=== PATIENT | female | born 1980 | race Caucasian/White ===

== ENCOUNTER → 2017-03-23 11:03 | Outpatient (CLI) | payer MEDICAID, SELFPAY ==
[2017-03-16 09:56] VITALS: BP 125/65; BMI 36.1
[2017-03-23 09:10] VITALS: BP 117/79; BMI 36.8
--- NOTE | 2017-03-23 11:05 | US_ITS ---
STUDY: SECOND AND THIRD TRIMESTER OBSTETRICAL ULTRASOUND - LIMITED REASON FOR EXAM: Female, 36 years old. Routine survey. Gestational diabetes. LMP: August 12, 2016. PRIOR ULTRASOUND: None. TECHNIQUE: Transabdominal ultrasound evaluation was performed. FINDINGS: There is a single intrauterine fetus. The fetus is in a cephalic presentation. There is demonstrated cardiac activity with a heart rate of 133 bpm. There is a normal amniotic fluid volume. The largest amniotic fluid pocket measures 4.9 cm x 2.8 cm. The amniotic fluid index (TERE) is 10.8 cm. The placenta is posterior in location and is not low lying. There are Grade 1 placental changes. The cervix measures 3.2 cm in length. BIOMETRY: BPD: 8.43 cm: 34 weeks, 0 days HC: 30.46 cm: 34 weeks, 0 days AC: 20.05 cm: 32 weeks, 1 days FL: 6.34 cm: 32 weeks, 6 days Age by LMP: 31 weeks, 6 days. HARPREET by LMP: May 19, 2017. age by current US: 33 weeks, 2 days. HARPREET by current US: May 09, 2017. Estimated weight: 2018 grams, +/- 295 grams, 65 percentile. Gender: Indeterminant US/OB Limited With Biometrics IMPRESSION: There is a single live uterine gestation with a mean gestational age of 33 weeks and 2 days. Electronically Signed: Noe Hernández MD at 13:23 EST Tel [phone], Service support ,
== END ==
PROVIDERS: Visit Provider Obstetrics & Gynecology
DX: O24.419 Gestational diabetes mellitus in pregnancy, unspecified control (principal); Z3A.00 Weeks of gestation of pregnancy not specified
CPT/HCPCS: 76816

== ENCOUNTER → 2017-04-16 20:47 | Outpatient (CLI) | payer MEDICAID, SELFPAY | PROVIDERS: Visit Provider Obstetrics & Gynecology | DX: O09.90 Supervision of high risk pregnancy, unspecified, unspecified trimester (principal); Z3A.00 Weeks of gestation of pregnancy not specified | CPT/HCPCS: 87086; 87088 ==

== ENCOUNTER → 2017-04-24 07:55 | Outpatient (CLI) | payer MEDICAID, SELFPAY ==
--- NOTE | 2017-04-24 07:58 | US_ITS ---
STUDY: SECOND AND THIRD TRIMESTER OBSTETRICAL ULTRASOUND - LIMITED REASON FOR EXAM: Female, 36 years old. Routine survey. LMP: August 12, 2016. PRIOR ULTRASOUND: Comparison is made with prior study dated March 23, 2017. TECHNIQUE: Transabdominal ultrasound evaluation was performed. FINDINGS: There is a single intrauterine fetus. The fetus is in a cephalic presentation. There is demonstrated cardiac activity with a heart rate of 153 bpm. There is a normal amniotic fluid volume. The largest amniotic fluid pocket measures 4.4 cm x 3.6 cm. The amniotic fluid index (TERE) is 8.0 cm. The placenta is posterior in location and is not low lying. There are Grade 1 placental changes. There is subvisualization of the cervix due to the head positioning. BIOMETRY: BPD: 8.94 cm: 36 weeks, 2 days HC: 32.75 cm: 37 weeks, 2 days AC: 32.39 cm: 36 weeks, 3 days FL: 7.19 cm: 36 weeks, 6 days Age by LMP: 36 weeks, 3 days. HARPREET by LMP: May 19, 2017. age by prior US: 37 weeks, 6 days. HARPREET by prior US: May 09, 2017. age by current US: 36 weeks, 5 days. HARPREET by current US: May 17, 2017. Estimated weight: 2960 grams, +/- 432 grams, 56 percentile. Gender: Indeterminant US/OB Limited With Biometrics IMPRESSION: Single live intracranial gestation with mean gestational age of 37 weeks and 6 days. The measurements obtained today fall within normal expected range. Electronically Signed: Noe Hernández MD at 14:16 EDT Tel [phone], Service support ,
== END ==
PROVIDERS: Visit Provider Obstetrics & Gynecology
DX: O09.90 Supervision of high risk pregnancy, unspecified, unspecified trimester (principal)
CPT/HCPCS: 76816

== ENCOUNTER → 2017-05-14 11:12 | Outpatient (CLI) | payer MEDICAID, SELFPAY ==
--- NOTE | 2017-05-14 11:13 | US_ITS ---
US OB Limited 1 Or More Fetus INDICATION: FGFetal growthReason for Exam-OB (US) COMPARISON: April 24, 2017 TECHNIQUE: Ultrasonographic grayscale, Doppler and duplex investigation off the . FINDINGS: There is a single live intrauterine gestation in cephalic presentation with heart rate of 150 bpm. The cervix is not well visualized due to head. The placenta is located posteriorly and is not low-lying. The TERE is low with 5 cm. Estimated gestational age by today's measurements is 39 weeks and 4 days, confirming normal interval growth since the previous study. Biparietal diameter: 9.6 cm, estimating a gestational age of 39 weeks and 3 days. Head circumference: 34.6 cm, estimating a gestational age of 40 weeks and 1 day. Abdominal circumference 35.6 cm, estimating a gestational age of 39 weeks and 2 days. Femur length 7.7 cm, estimating a gestational age of 39 weeks and 2 days. Estimated weight by today's measurements is 3765 g with a standard deviation of 550 g which is in the 73rd percentile. Estimated date of delivery remains May 19, 2017. US/OB Limited With Biometrics IMPRESSION: Single live intrauterine gestation with normal interval growth, as detailed above. Estimated gestational age by today's measurements is 39 weeks and 4 days. Estimated date of delivery remains May 17, 2017. heart rate 150 bpm. TERE is low with 5 cm. at 0019 Reported and signed by: Mya Melgar MD Electronically Signed: Mya Melgar MD at 23:17 EDT Tel , Service support ,
== END ==
PROVIDERS: Visit Provider Obstetrics & Gynecology
DX: O09.90 Supervision of high risk pregnancy, unspecified, unspecified trimester (principal); O24.419 Gestational diabetes mellitus in pregnancy, unspecified control; Z3A.38 38 weeks gestation of pregnancy
CPT/HCPCS: 76816

== ENCOUNTER 2017-05-15 11:30 | Inpatient (IN) | payer MEDICAID, SELFPAY ==
[2017-05-15 12:32] VITALS: BMI 36.4
[2017-05-15] MEDS: Lactated Ringers 1,000 ML 50 ML IV ×2 (12:40→23:12)
[2017-05-15 13:05] LABS: Hematocrit 42.1 % (37-47); Hemoglobin 13.8 g/dl (12.0-15.0); Mean Corp Hgb Conc 32.8 g/gl (32-36); Mean Corpuscular Hgb 29.6 pg (27.0-32.0); Mean Corpuscular Volume 90.1 fL (81-99); Mean Platelet Vol. 12.9 fl (6.2-12.0); Platelet Count 164 K/mm3 (150-450); RBC Distribution Width CV 13.2 % (11.6-14.6); RBC Distribution Width SD 42.9 fl (35.1-43.9); Red Blood Count 4.67 M/mm3 (4.2-5.4); White Blood Count 10.5 K/mm3 (4.4-11.0)
[2017-05-15 13:12] LABS: Scan Indicated on CBC? Y/N NO
[2017-05-15 13:35] LABS: Bedside Glucose 87 mg/dL (70-110)
[2017-05-15 17:21] LABS: Bedside Glucose 88 mg/dL (70-110)
[2017-05-15] MEDS: Oxytocin 30 units/NS 500 ml 30 UNITS/500 ML IV.SOLN IV (20:10)
[2017-05-15 21:25] LABS: Bedside Glucose 117 mg/dL (70-110)
[2017-05-15 22:25] LABS: Bedside Glucose 99 mg/dL (70-110)
--- NOTE | 2017-05-16 02:29 | PCM.HP.OB ---
- Problem List (1) Oligohydramnios in third trimester Status: Acute (2) GBS (group B streptococcus) UTI complicating Status: Acute Qualifiers: Comment: PCN in labor (3) Rubella non-immune status, antepartum Status: Acute Comment: MMR pp (4) Supervision of high-risk Status: Acute Qualifiers: Comment: PRR HARPREET 05/19/17 boy Harjinder (5) Gestational diabetes Status: Acute Qualifiers: Comment: sees SHAUNA Foreman, diet controlled History Date of Admission: 05/16/17 Final HARPREET: 05/11/17 Gestational age: 40 Weeks and 4 Days History of this : 36 yo @ 40w4d Pertinent Past Medical History: PFSH negative PFSH Family History Mother Diabetes Cancer Breast cancer Father Hypertension Social History Smoking Status: Never smoker alcohol intake: never substance use type: does not use caffeine: Yes what type of physical activity do you participate in: none seatbelt use: always do you feel safe at home: Yes additional social history: Spouse Harjinder works for [employer] Pregancy History 1 Elective abortions Hx Para 0 Spontaneous abortions Hx # Term Pregnancies Ectopic pregnancies Hx # Pregnancies Multiple births # of living children HARPREET Calculator Estimated Delivery Date 05/19/17 Based on LMP (certain) 08/12/16 Current WG 38w 3d Number 1 Expected Delivery Route/Plan Specific Issue/Plans flu vaccine declined HERMINIO from [place] tdap given labor support person: Harjinder and Anita Null (friend) pain management: epidural cut cord/dad catch: yes/maybe control planned: special requests: Initial OB labs 10/18/16 H.3 Platelets: 220 Type and Screen: O positive RPR: nonimmune Rubella: neg HepBsAg: neg HIV: neg GC/Chlamydia: neg/neg Urine Culture: GBS Allergies No Known Allergies Allergy (Unverified 05/08/17 14:35) Current Medications Acetaminophen (Tylenol) 325 - 650 mg PO Q4H PRN PRN PRN Reason: PAIN OR FEVER >100.4F Al Hydroxide/Mg Hydroxide (Mylanta Ii) 15 - 30 ml PO Q4H PRN PRN PRN Reason: INDIGESTION Citric Acid/Sodium Citrate (Bicitra) 30 ml PO UD PRN Lactated Ringer's () 1,000 mls @ 50 mls/hr IV .Q20H [facility] Last Admin: 05/15/17 23:12 Dose: 50 mls/hr Oxytocin/Sodium Chloride () 30 units in 500 mls @ 1 mls/hr IV .Q500H [facility] Last Admin: 05/15/17 20:10 Dose: 1 mls/hr Penicillin G Potassium/Dextrose (Penicillin G Potassium) 3 mu in 50 mls @ 100 mls/hr IV Q4H [facility] Last Admin: 05/15/17 23:26 Dose: 100 mls/hr Nalbuphine HCl (Nubain) 5 - 10 mg IV Q3H PRN PRN PRN Reason: PAIN (4-10/10) Ondansetron HCl (Zofran) 4 mg IV Q8H PRN PRN PRN Reason: NAUSEA Promethazine HCl (Phenergan Iv) 6.25 - 12.5 mg IV Q4H PRN PRN; Protocol PRN Reason: IF NAUSEA PERSISTS Sodium Chloride () 5 - 15 ml IV UD [facility] Last Admin: 05/15/17 20:02 Dose: Not Given Smoking Status: Never smoker Alcohol: None Drug Use: none Number of Fetus(es): 1 - 130 moderate variability reactive no decels Review of Systems Constitutional: Denies: Chills, Fever, Weight Change HEENT: Denies: Head Aches, Sinus Congestion, Sinus Drainage Cardiovascular: Denies: Chest Pain, Palpitations Respiratory: Denies: Cough, Shortness of breath at rest, Sputum production Gastrointestinal: Denies: Abdominal Pain, Nausea, Vomiting Genitourinary: Denies: Dysuria Musculoskeletal: Denies: Joint Pain, Joint Tenderness Skin: Denies: Rash, Wounds Neurological: Denies: Numbness, Tingling, Focal weakness Psychiatric: Denies: Anxiety, Depression, Homicidal Ideations, Suicidal Ideations Hematologic/ Lymphatic: Denies: Easy Bruising, Easy Bleeding Physical Exam General: Alert, Oriented x3 Cardiovascular: Regular rate Lungs: Normal air movement Abdomen: Soft, Gravid Estimated gestational size: Appropriate for gestational size Cervix Dilation (cm): 3 Assessment/Plan Active and Suspected Problems (Last Reviewed 05/08/17 @ 14:35 by Lori Henderson) Oligohydramnios in third trimester (Acute) iol oligo gdma1 bs q 1 IAL, iol pit, arom clear fluid epi PRN
[2017-05-16] MEDS: fentaNYL-bupivacaine (epidural) 100 ML BAG EPIDURAL ×3 (02:37→11:34)
--- NOTE | 2017-05-16 02:41 | HP.PCM_ITS ---
- Problem List (1) Oligohydramnios in third trimester Status: Acute (2) GBS (group B streptococcus) UTI complicating Status: Acute Qualifiers: Comment: PCN in labor (3) Rubella non-immune status, antepartum Status: Acute Comment: MMR pp (4) Supervision of high-risk Status: Acute Qualifiers: Comment: PRR HARPREET 05/19/17 boy Harjinder (5) Gestational diabetes Status: Acute Qualifiers: Comment: sees SHAUNA Foreman, diet controlled History Date of Admission: 05/16/17 Final HARPREET: 05/11/17 Gestational age: 40 Weeks and 4 Days History of this : 36 yo @ 40w4d Pertinent Past Medical History: PFSH negative PFSH Family History Mother Diabetes Cancer Breast cancer Father Hypertension Social History Smoking Status: Never smoker alcohol intake: never substance use type: does not use caffeine: Yes what type of physical activity do you participate in: none seatbelt use: always do you feel safe at home: Yes additional social history: Spouse Harjinder works for [employer] Pregancy History 1 Elective abortions Hx Para 0 Spontaneous abortions Hx # Term Pregnancies Ectopic pregnancies Hx # Pregnancies Multiple births # of living children HARPREET Calculator Estimated Delivery Date 05/19/17 Based on LMP (certain) 08/12/16 Current WG 38w 3d Number 1 Expected Delivery Route/Plan Specific Issue/Plans flu vaccine declined HERMINIO from [place] tdap given labor support person: Harjinder and Anita Null (friend) pain management: epidural cut cord/dad catch: yes/maybe control planned: special requests: Initial OB labs 10/18/16 H.3 Platelets: 220 Type and Screen: O positive RPR: nonimmune Rubella: neg HepBsAg: neg HIV: neg GC/Chlamydia: neg/neg Urine Culture: GBS Allergies No Known Allergies Allergy (Unverified 05/08/17 14:35) Current Medications Acetaminophen (Tylenol) 325 - 650 mg PO Q4H PRN PRN PRN Reason: PAIN OR FEVER >100.4F Al Hydroxide/Mg Hydroxide (Mylanta Ii) 15 - 30 ml PO Q4H PRN PRN PRN Reason: INDIGESTION Citric Acid/Sodium Citrate (Bicitra) 30 ml PO UD PRN Lactated Ringer's () 1,000 mls @ 50 mls/hr IV .Q20H [facility] Last Admin: 05/15/17 23:12 Dose: 50 mls/hr Oxytocin/Sodium Chloride () 30 units in 500 mls @ 1 mls/hr IV .Q500H [facility] Last Admin: 05/15/17 20:10 Dose: 1 mls/hr Penicillin G Potassium/Dextrose (Penicillin G Potassium) 3 mu in 50 mls @ 100 mls/hr IV Q4H [facility] Last Admin: 05/15/17 23:26 Dose: 100 mls/hr Nalbuphine HCl (Nubain) 5 - 10 mg IV Q3H PRN PRN PRN Reason: PAIN (4-10/10) Ondansetron HCl (Zofran) 4 mg IV Q8H PRN PRN PRN Reason: NAUSEA Promethazine HCl (Phenergan Iv) 6.25 - 12.5 mg IV Q4H PRN PRN; Protocol PRN Reason: IF NAUSEA PERSISTS Sodium Chloride () 5 - 15 ml IV UD [facility] Last Admin: 05/15/17 20:02 Dose: Not Given Smoking Status: Never smoker Alcohol: None Drug Use: none Number of Fetus(es): 1 - 130 moderate variability reactive no decels Review of Systems Constitutional: Denies: Chills, Fever, Weight Change HEENT: Denies: Head Aches, Sinus Congestion, Sinus Drainage Cardiovascular: Denies: Chest Pain, Palpitations Respiratory: Denies: Cough, Shortness of breath at rest, Sputum production Gastrointestinal: Denies: Abdominal Pain, Nausea, Vomiting Genitourinary: Denies: Dysuria Musculoskeletal: Denies: Joint Pain, Joint Tenderness Skin: Denies: Rash, Wounds Neurological: Denies: Numbness, Tingling, Focal weakness Psychiatric: Denies: Anxiety, Depression, Homicidal Ideations, Suicidal Ideations Hematologic/ Lymphatic: Denies: Easy Bruising, Easy Bleeding Physical Exam General: Alert, Oriented x3 Cardiovascular: Regular rate Lungs: Normal air movement Abdomen: Soft, Gravid Estimated gestational size: Appropriate for gestational size Cervix Dilation (cm): 3 Assessment/Plan Active and Suspected Problems (Last Reviewed 05/08/17 @ 14:35 by Lori Henderson) Oligohydramnios in third trimester (Acute) iol oligo gdma1 bs q 1 IAL, iol pit, arom clear fluid epi PRN
[2017-05-16 03:15] LABS: Bedside Glucose 121 mg/dL (70-110)
[2017-05-16 04:16] LABS: Bedside Glucose 95 mg/dL (70-110)
[2017-05-16 05:11] LABS: Bedside Glucose 77 mg/dL (70-110)
[2017-05-16] MEDS: Ondansetron 4 MG/2 ML Vial IV (05:12)
[2017-05-16 06:16] LABS: Bedside Glucose 91 mg/dL (70-110)
[2017-05-16 06:56] LABS: Bedside Glucose 89 mg/dL (70-110)
[2017-05-16 08:06] LABS: Bedside Glucose 81 mg/dL (70-110)
[2017-05-16 09:00] LABS: Bedside Glucose 101 mg/dL (70-110)
[2017-05-16 09:56] LABS: Bedside Glucose 94 mg/dL (70-110)
[2017-05-16 10:51] LABS: Bedside Glucose 87 mg/dL (70-110)
[2017-05-16 12:05] LABS: Bedside Glucose 88 mg/dL (70-110)
[2017-05-16] MEDS: Oxytocin 30 units/NS 500 ml 30 UNITS/500 ML IV.SOLN 334 UNITS IV (12:42)
[2017-05-16] MEDS: Oxytocin 30 units/NS 500 ml 30 UNITS/500 ML IV.SOLN 167 UNITS IV (13:10)
[2017-05-16 16:00] VITALS: BP 129/67; PULSE 91; RESP 20; TEMP 37.1
[2017-05-16] MEDS: 0.9% Saline Lock 10 ML Syringe IV (16:00)
[2017-05-16 20:00] VITALS: BP 128/68; PULSE 81; RESP 15; TEMP 36.6
[2017-05-17] VITALS: BP 119/67; PULSE 92; RESP 16; TEMP 36.5
[2017-05-17] MEDS: Naproxen 250 MG Tablet PO ×2 (01:12→13:41)
[2017-05-17 04:00] VITALS: BP 130/70; PULSE 98; RESP 15; TEMP 36.3
[2017-05-17 06:40] LABS: Bedside Glucose 70 mg/dL (70-110)
--- NOTE | 2017-05-17 07:45 | PCM.PN.OB ---
Patient Problems: Active and Suspected Problems (Last Reviewed 05/08/17 @ 14:35 by Lori Henderson) Oligohydramnios in third trimester (Acute) Subjective: Doing well. No SOB,CP, NV. Minimal discomfort, controlled with OTC med - Physical Exam General: Alert, Oriented x3 Abdomen: Soft, Non Tender, - - FF below U Vital Signs Temp Pulse Resp BP 97.4 F L 98 15 130/70 H 05/17/17 04:00 05/17/17 04:00 05/17/17 04:00 05/17/17 04:00 Oxygen Delivery Method Room Air Weight: 225 lb 15.581 oz Body Mass Index (BMI) 36.4 Intake and Output for Last 24 Hours 05/15/17 05/16/17 05/17/17 23:59 23:59 23:59 Intake Total 4964 / 4964 Output Total 1650 / 1650 Balance 3314 / 3314 POC Glucose 05/17/17 05/16/17 05/16/17 06:36 11:52 10:43 POC Glucose 70 88 87 05/16/17 05/16/17 05/16/17 09:46 08:51 07:43 POC Glucose 94 101 81 Medical Necessity - Tobacco Use Smoking Status: Never smoker Assessment/Plan Active and Suspected Problems (Last Reviewed 05/08/17 @ 14:35 by Lori Henderson) Oligohydramnios in third trimester (Acute) PPD #1 Routine care. . Rh positive.
[2017-05-17] MEDS: Acetaminophen 500 MG Tablet 1000 MG PO (07:48)
[2017-05-17 07:54] VITALS: BP 122/63; PULSE 71; RESP 16; TEMP 36.7; O2SAT 95
[2017-05-17 08:00] VITALS: BP 122/63; PULSE 71; RESP 18; TEMP 36.7; O2SAT 95
[2017-05-17 11:44] VITALS: BP 125/71; PULSE 91; RESP 49; TEMP 36.5; O2SAT 97
[2017-05-17] MEDS: Senna/Docusate Sodium 1 Tablet PO (20:22)
[2017-05-17] MEDS: oxyCODONE 5 MG Tablet PO (20:23)
[2017-05-17 20:34] VITALS: BP 121/58; PULSE 73; RESP 18; TEMP 36.8; O2SAT 98
[2017-05-17] MEDS: Oxytocin 30 units/NS 500 ml 30 UNITS/500 ML IV.SOLN 334 UNITS IV (21:31)
[2017-05-18 01:54] VITALS: BP 111/69; PULSE 74; RESP 18; TEMP 36.6; O2SAT 96
[2017-05-18] MEDS: Naproxen 250 MG Tablet PO (07:58)
[2017-05-18] MEDS: oxyCODONE 5 MG Tablet PO (07:58)
[2017-05-18 08:05] VITALS: BP 109/72; PULSE 71; RESP 16; TEMP 36.6; O2SAT 98
--- NOTE | 2017-05-18 11:14 | PCM.OB.VAG ---
- Problem List (1) Oligohydramnios in third trimester Status: Acute (2) GBS (group B streptococcus) UTI complicating Status: Acute Qualifiers: Comment: PCN in labor (3) Rubella non-immune status, antepartum Status: Acute Comment: MMR pp (4) Supervision of high-risk Status: Acute Qualifiers: Comment: PRR HARPREET 05/19/17 boy Harjinder (5) Gestational diabetes Status: Acute Qualifiers: Comment: sees SHAUNA [place]ok, diet controlled Vaginal Delivery Maternal Presentation: Spontaneous Rupture of Membranes iol PROM Method of Induction: Pitocin, Cytotec Amniotic Membrane Rupture Type: Spontaneous at home Amniotic Fluid Description: Clear Final HARPREET: 05/19/17 Gestational age: 39 Weeks and 4 Days Date of Procedure: 05/16/17 Pre-Operative Diagnosis: Post-Operative Diagnosis: Surgery/ Procedure Performed: Spontaneous Vaginal Delivery Type of Anesthesia: Epidural Description of Procedure: patient delivered uncomplicated prema presentation and delayed cord clamping. 2nd degree perineal laceration repaired in the usual fashion with 3-0 vicryl rapide Presentation: PREMA Placental Delivery Description: Spontaneous Placenta Disposition: [facility] Cord Vessel Description: 3 Vessels Cord Entanglement: None A gender: Male Episiotomy Description: None Laceration: Perineal Extension/lac, 2nd degree Medications given after delivery: IV Pitocin Complications: None
--- NOTE | 2017-05-18 11:20 | PCM.PN.OB ---
Patient Problems: Active and Suspected Problems (Last Reviewed 05/08/17 @ 14:35 by Lori Henderson) Oligohydramnios in third trimester (Acute) Subjective: doing well n ocomplaints - Physical Exam General: Alert, Oriented x3 Vital Signs Temp Pulse Resp BP Pulse Ox 97.8 F 71 16 109/72 98 05/18/17 08:05 05/18/17 08:05 05/18/17 08:05 05/18/17 08:05 05/18/17 08:05 Oxygen Delivery Method Room Air Weight: 225 lb 15.581 oz Body Mass Index (BMI) 36.4 Intake and Output for Last 24 Hours 05/16/17 05/17/17 05/18/17 23:59 23:59 23:59 Intake Total 4964 / 4964 Output Total 1650 / 1650 Balance 3314 / 3314 Medical Necessity - Tobacco Use Smoking Status: Never smoker Assessment/Plan Active and Suspected Problems (Last Reviewed 05/08/17 @ 14:35 by Lori Henderson) Oligohydramnios in third trimester (Acute) s/p routine care gdma1- fbs wnl fu for 2 hour gtt at ppv
--- NOTE | 2017-05-18 11:27 | DCINST_ITS ---
Discharge Diet: No Restrictions Discharge Activity: Return to Normal Activity, May not drive while taking narcotic pain medications., May Shower May resume sexual activity in: 4-6 weeks Call your doctor if your incision/area has: Continuous Slow Oozing, Sudden Increased Bleeding, Increased Pain/ Swelling, Increased Redness, Foul Smelling Discharge Additional Instructions: If you experience any of the following, contact your healthcare provider. * Bleeding that soaks a pad every hour for 2 hours * Fever 100.4 or higher * Unrelieved incision or abdominal pain * Swelling, redness, discharge or bleeding from your incision or episiotomy site * Your incision begins to separate * Problems urinating (including inability to urinate or burning while urinating) . * Visual changes * Severe headache * Flu-like symptoms * Pain or redness in one of both of your breasts * Pain, warmth, tenderness or swelling in your legs, especially the calf area * Frequent nausea and vomiting * Symptoms of depression or anxiety If you experience any of the following, call 911 or go to the nearest Emergency Room. * Chest pain * Problems breathing * Seizure activity * Partial or complete paralysis of a body part, slurred speech, weakness or drooping of the face, or a sudden inability to walk or hold your balance Allergies/Adverse Reactions: Allergies No Known Allergies Allergy (Unverified 05/08/17 14:35) Medications to take at Discharge vitamins 1 tab PO DAILY 02/13/17 blood sugar diagnostic strips See Dose Instructions .ROUTE .MEDSUPPLY #180 ea Naproxen [Naprosyn] 250 - 500 mg PO Q8H PRN PRN #30 tab 05/18/17 Oxycodone HCl/Acetaminophen [Percocet 5-325] 1 - 2 tablet PO Q4H PRN PRN 7 Days #15 tablet 05/18/17 The following prescriptions were given: Oxycodone HCl/Acetaminophen [Percocet 5-325] 1 - 2 tablet PO Q4H PRN PRN 7 Days #15 tablet PRN Reason: Pain Naproxen [Naprosyn] 250 - 500 mg PO Q8H PRN PRN #30 tab PRN Reason: MILD PAIN Please Follow Up With: Falguni Palma MD - [phone] When: Call to make an appointment with your doctor in 6 weeks. If you had elevated Blood pressure or 4th degree laceration you will need to be seen in 2 weeks. Primary Care Physician: Care Physician,No Primary [Primary Care Provider] -
[2017-05-18 12:15] VITALS: BP 115/63; PULSE 76; RESP 15; TEMP 37.1; O2SAT 97
== END 2017-05-18 13:20 | disposition home or self-care (01) | DRG 372 ==
PROVIDERS: Admitting Provider Obstetrics & Gynecology; Visit Provider Obstetrics & Gynecology
DX: O41.03X0 Oligohydramnios, third trimester, not applicable or unspecified (principal); O98.82 Other maternal infectious and parasitic diseases complicating childbirth; O24.420 Gestational diabetes mellitus in childbirth, diet controlled; B95.1 Streptococcus, group B, as the cause of diseases classified elsewhere; O70.1 Second degree perineal laceration during delivery; Z3A.39 39 weeks gestation of pregnancy; Z37.0 Single live birth
CPT/HCPCS: 59025; 59050; 76816; 82962; 85027; 86850; 86900; 99218; J7120; A4216; G0378; J2405

== ENCOUNTER 2017-05-21 18:30 | Outpatient (CLI) | payer MEDICAID, SELFPAY | END 2017-05-21 19:30 | disposition home or self-care (01) | LOC: WPOUT 18:39 → WP 18:40 | PROVIDERS: Visit Provider Obstetrics & Gynecology | DX: O92.79 Other disorders of lactation (principal) | CPT/HCPCS: 96152 ==

== ENCOUNTER 2017-05-22 10:55 | Outpatient (CLI) | payer MEDICAID, SELFPAY | END 2017-05-22 12:00 | disposition home or self-care (01) | LOC: OBS 11:09 → WP 11:25 | PROVIDERS: Visit Provider Obstetrics & Gynecology | DX: O90.89 Other complications of the puerperium, not elsewhere classified (principal) | CPT/HCPCS: 96152 ==

== ENCOUNTER 2017-05-23 17:40 | Outpatient (CLI) | payer MEDICAID, SELFPAY | END 2017-05-23 17:55 | disposition home or self-care (01) | LOC: WPOUT 17:51 → WP 17:54 | PROVIDERS: Visit Provider Obstetrics & Gynecology | DX: O92.79 Other disorders of lactation (principal) | CPT/HCPCS: 96152 ==

== ENCOUNTER → 2018-07-22 | Outpatient (CLI) | payer MEDICAID, SELFPAY ==
[2018-07-22 13:53] VITALS: BMI 36.8
[2018-07-22 14:51] LABS: Absolute Lymphocyte Count 1.73 X10^3/ul (0.83-4.51); Absolute Neutrophil Count 5.8 X10^3/uL (2.0-7.7); Basophil# 0.01 X10^3/uL; Basophil% 0.1 % (0-1); Eosinophil# 0.06 X10^3/uL; Eosinophils% 0.7 % (0-5); Hematocrit 39.9 % (37-47); Hemoglobin 13.4 g/dl (12.0-15.0); Lymphocyte # 1.73 X10^3/ul (4.0); Lymphocyte % 21.1 % (19-41); Mean Corp Hgb Conc 33.6 g/gl (32-36); Mean Corpuscular Volume 86.4 fL (81-99); Monocyte# 0.59 X10^3/uL; Monocyte% 7.2 % (0-10); Neutrophil # 5.79 X10^3/uL (2.7-7.7); Neutrophil % 70.5 % (47-70); Platelet Count 189 K/mm3 (150-450); RBC Distribution Width CV 12.5 % (11.6-14.6); Red Blood Count 4.62 M/mm3 (4.2-5.4); White Blood Count 8.2 K/mm3 (4.4-11.0)
[2018-07-22 14:52] LABS: POSITIVE COUNT NO; POSITIVE DIFFERENTIAL NO; POSITIVE MORPHOLOGY NO
[2018-07-22 15:05] LABS: Glucose Challenge Gest 1H 50g 131 mg/dL (70-140)
[2018-07-22 16:23] LABS: HIV - WCH Non-Reactive (Nonreactive); Rubella IgG 174.2 IU/mL
[2018-07-22 19:14] LABS: Chlamydia Trachomatis by PCR Negative (Negative); Neisserai gonorrhoeae by PCR Negative (Negative); Probe Check PASS; Sample Adequacy Control PASS; Specimen Processing Control PASS
[2018-07-24 11:07] LABS: HEPATITIS B SURFACE AG Negative (Negative)
[2018-07-26 01:43] LABS: Rapid Plasmin Reagin (RPR) NONREACTIVE (NONREACTIVE)
== END | disposition home or self-care (01) ==
PROVIDERS: Referring Provider Obstetrics & Gynecology; Visit Provider Obstetrics & Gynecology
DX: O09.521 Supervision of elderly multigravida, first trimester (principal); O09.90 Supervision of high risk pregnancy, unspecified, unspecified trimester; Z31.430 Encounter of female for testing for genetic disease carrier status for procreative management; Z3A.00 Weeks of gestation of pregnancy not specified
CPT/HCPCS: 36415; 82950; 85025; 86592; 86703; 86762; 86850; 86900; 87086; 87088; 87340; 87491; 87591

== ENCOUNTER → 2018-11-19 | Outpatient (CLI) | payer MEDICAID, SELFPAY ==
[2018-11-19 09:11] VITALS: BMI 36.8
[2018-11-19 10:05] LABS: Absolute Lymphocyte Count 1.22 X10^3/uL (0.83-4.51); Absolute Neutrophil Count 6.9 X10^3/uL (2.0-7.7); Basophil# 0.01 X10^3/uL; Basophil% 0.1 % (0-1); Eosinophil# 0.07 X10^3/uL; Eosinophils% 0.8 % (0-5); Hematocrit 37.4 % (37-47); Hemoglobin 12.2 g/dL (12.0-15.0); Lymphocyte # 1.22 X10^3/ul (4.0); Lymphocyte % 13.5 % (19-41); Mean Corp Hgb Conc 32.6 g/dL (32-36); Mean Corpuscular Hgb 29.5 pg (27.0-32.0); Mean Corpuscular Volume 90.6 fL (81-99); Mean Platelet Vol. 11.4 fl (6.2-12.0); Monocyte% 7.7 % (0-10); NRBC Flagged by Analyzer 0 % (0-5); Neutrophil # 6.88 X10^3/uL (2.7-7.7); Neutrophil % 75.9 % (47-70); Platelet Count 154 K/mm3 (150-450); RBC Distribution Width CV 12.6 % (11.6-14.6); RBC Distribution Width SD 41.7 fl (35.1-43.9); Red Blood Count 4.13 M/mm3 (4.2-5.4); White Blood Count 9.1 K/mm3 (4.4-11.0)
[2018-11-19 10:10] LABS: Glucose Challenge Gest 1H 50g 150 mg/dL (70-140)
== END | disposition home or self-care (01) ==
PROVIDERS: Referring Provider Nurse Practitioner Women's Health; Visit Provider Nurse Practitioner Women's Health
DX: O09.90 Supervision of high risk pregnancy, unspecified, unspecified trimester (principal); Z3A.00 Weeks of gestation of pregnancy not specified
CPT/HCPCS: 36415; 82950; 85025

== ENCOUNTER → 2018-11-25 | Outpatient (CLI) | payer MEDICAID, SELFPAY ==
[2018-11-19 09:11] VITALS: BMI 36.8
[2018-11-25 11:29] LABS: Glucose GTT-Gestation. Fasting 89 mg/dL (<105)
[2018-11-25 12:15] LABS: Glucose GTT-Gestational 1 Hr 183 mg/dL (<190)
[2018-11-25 13:09] LABS: Glucose GTT-Gestational 2 Hr 174 mg/dL (<165)
[2018-11-25 14:04] LABS: Glucose GTT-Gestational 3 Hr 81 L (<145)
== END | disposition home or self-care (01) ==
LOC: LAB 09:54
PROVIDERS: Referring Provider Obstetrics & Gynecology; Visit Provider Obstetrics & Gynecology
DX: R73.09 Other abnormal glucose (principal)
CPT/HCPCS: 36415; 82951; 82952

== ENCOUNTER 2019-01-06 11:00 | Outpatient (RCR) | payer MEDICAID, SELFPAY ==
[2018-12-12 09:07] VITALS: BMI 36.8
[2018-12-24 09:01] VITALS: BMI 36.8
== END 2019-01-11 23:59 ==
LOC: DC 11:00
PROVIDERS: Visit Provider Nurse Practitioner Women's Health
DX: O24.419 Gestational diabetes mellitus in pregnancy, unspecified control (principal)
CPT/HCPCS: 97802; G0108

== ENCOUNTER 2019-01-13 09:56 | Outpatient (RCR) | payer MEDICAID, SELFPAY ==
[2019-01-01 10:07] VITALS: BMI 36.8
== END 2019-02-11 23:59 ==
LOC: DC 09:56
PROVIDERS: Visit Provider Nurse Practitioner Women's Health
DX: O24.419 Gestational diabetes mellitus in pregnancy, unspecified control (principal)

== ENCOUNTER → 2019-01-20 13:23 | Outpatient (CLI) | payer MEDICAID, SELFPAY ==
[2019-01-20 10:14] VITALS: BMI 36.8
== END ==
PROVIDERS: Referring Provider Obstetrics & Gynecology; Visit Provider Obstetrics & Gynecology
DX: O24.419 Gestational diabetes mellitus in pregnancy, unspecified control (principal); Z3A.00 Weeks of gestation of pregnancy not specified
CPT/HCPCS: 87077; 87081; 87186

== ENCOUNTER 2019-01-30 16:00 | Inpatient (IN) | payer MEDICAID, SELFPAY ==
[2019-01-30 14:07] VITALS: BMI 36.8
[2019-01-30 14:22] LABS: ROM Internal Control Test YES-OK TO RESULT pt. (Internal QC)
[2019-01-30 14:25] LABS: ROM Patient Test POSITIVE (Negative)
[2019-01-30] MEDS: Lactated Ringers 1,000 ML 50 ML IV (16:12)
[2019-01-30 16:14] VITALS: BMI 40.0
[2019-01-30 16:25] LABS: Bedside Glucose 100 mg/dL (70-110)
[2019-01-30] MEDS: Lactated Ringers 500 ML 999 ML IV ×2 (16:30→17:34)
[2019-01-30 16:41] LABS: Absolute Lymphocyte Count 2.04 X10^3/uL (0.83-4.51); Absolute Neutrophil Count 8.8 X10^3/uL (2.0-7.7); Basophil# 0.03 X10^3/uL; Basophil% 0.2 % (0-1); Eosinophil# 0.06 X10^3/uL; Eosinophils% 0.5 % (0-5); Hematocrit 42.6 % (37-47); Hemoglobin 14.1 g/dL (12.0-15.0); Lymphocyte # 2.04 X10^3/ul (4.0); Lymphocyte % 16.8 % (19-41); Mean Corp Hgb Conc 33.1 g/dL (32-36); Mean Corpuscular Hgb 29.2 pg (27.0-32.0); Mean Corpuscular Volume 88.2 fL (81-99); Mean Platelet Vol. 12.9 fl (6.2-12.0); Monocyte# 0.98 X10^3/uL; Monocyte% 8.1 % (0-10); NRBC Flagged by Analyzer 0 % (0-5); Neutrophil # 8.83 X10^3/uL (2.7-7.7); Neutrophil % 72.9 % (47-70); Platelet Count 157 K/mm3 (150-450); RBC Distribution Width CV 12.6 % (11.6-14.6); RBC Distribution Width SD 40.6 fl (35.1-43.9); Red Blood Count 4.83 M/mm3 (4.2-5.4); White Blood Count 12.1 K/mm3 (4.4-11.0)
[2019-01-30 17:25] LABS: Bedside Glucose 174 mg/dL (70-110)
[2019-01-30] MEDS: fentaNYL-bupivacaine (epidural) 100 ML BAG EPIDURAL ×2 (17:57→22:06)
[2019-01-30 18:05] LABS: Bedside Glucose 131 mg/dL (70-110)
--- NOTE | 2019-01-30 18:13 | HP.PCM_ITS ---
- Problem List (1) SROM (spontaneous rupture of membranes) Status: Acute (2) Active labor Status: Acute (3) AMA (advanced maternal age) multigravida 35+ Status: Acute Qualifiers: Comment: genetic screening- low risk girl chose NIPT. (4) Acute stress reaction Status: Acute Comment: support given, declined zoloft, h/o carcinoid cancer in mom (5) GBS (group B Streptococcus carrier), +RV culture, currently Status: Acute Comment: plan pcn in labor (6) Gestational diabetes mellitus (GDM) affecting Status: Acute Comment: diet controlled, weekly nsts, Growth US at 36 weeks stable 36%, deliver by 40 weeks (7) History of oligohydramnios Status: Acute Comment: nl neo at 36 weeks (8) Obesity affecting Status: Acute Qualifiers: Comment: BMI 38- Glucola NOB-WNL encouraged healthy weight gain (9) Status: Acute Qualifiers: Comment: carrier and genetic testing done, declined afp screen. anatomy us complete. (10) Spinal muscular atrophy Status: Acute Comment: Patient is a carrier. needs to be tested/aware (11) Supervision of high risk , antepartum Status: Acute Comment: PRR HARPREET 02/14/2019 girl PC Caius Spouse Harjinder History and Physical Date of Admission: 01/30/19 Intake Vital Signs 01/30/19 Height 5 ft 6 in 01/30/19 Weight: 251 lb 01/30/19 BMI 40.5 01/30/19 BP 128/78 H Intake Visit Reasons: ROM Allergies No Known Allergies Allergy (Verified 01/30/19 13:55) Medications promethazine 12.5 mg tablet 12.5 mg PO Q6H PRN #60 tab 06/20/18 [Rx Confirmed 01/30/19] docosahexanoic acid 200 mg capsule mg PO cap 07/22/18 [History Confirmed 01/30/19] sertraline 50 mg tablet 50 mg PO QDAY #30 tab 10/15/18 [Rx Confirmed 01/30/19] blood sugar diagnostic See Rx Instructions .ROUTE .MEDSUPPLY #100 ea 11/26/18 [Rx Confirmed 01/30/19] blood-glucose meter See Rx Instructions .ROUTE .MEDSUPPLY #1 ea 11/26/18 [Rx Confirmed 01/30/19] lancets 28 gauge See Rx Instructions .ROUTE .MEDSUPPLY #200 ea 11/26/18 [Rx Confirmed 01/30/19] Last Menstral Period: 05/10/18 Zika: Zika virus screening: Negative : No PFSH PFSH Family History Mother Diabetes Cancer Breast cancer Father Hypertension Social History (Updated 01/30/19 @ 14:07 by Marilee Marie NP-C) Smoking Status: Never smoker alcohol intake: never substance use type: does not use caffeine: No what type of physical activity do you participate in: none seatbelt use: always do you feel safe at home: Yes additional social history: Spouse Harjinder works for [employer]. Patient is stay at home mom Pregancy History 2 Elective abortions Hx Para 1 Spontaneous abortions Hx # Term Pregnancies Ectopic pregnancies Hx # Pregnancies Multiple births # of living children 1 Past Pregnancies Del. Date Name GA/Weeks Outcome Route Bth Weight Gen Labor Lgth Anesthesia Del [facility] Provider FOB 05/16/17 Caius 39 live - full term 7lbs 12oz Male 1 6 hours epidural [facility] Delivery Date: 05/16/17 On 07/22/18 @ 13:28 Tricia Mckeon IOL, [place] GDMA HPI ROM: Details: ZAHIDA CURTIS is a 38 year old who presents for routine OB visit. she was found to be 4 cm dilated and had a positive ROM plus OB Visit HARPREET Calculator Estimated Delivery Date Method Current WG Current Estimate 02/14/19 LMP (Certain) 37w 6d Expected Delivery Route/Plan Labor Preferences- labor support person: ba pain management options preferred: epidural cut cord/dad catch: yes : yes PP control planned: pill discussed possible routes of delivery and associated risks: special requests: [] Specific Issue/Plans flu vaccine: given tdap vaccine: given rhogam: NA LARC form signed: gunner labor support person: Harjinder pain management: epidural cut cord/dad catch: yes : yes PP control planned: discussed possible routes of delivery and associated risks: [] special requests: [] Initial Weight: 236 lb Date EGA Weight BP Urine Prot Glucose FHR FuHt Pres Mov CTX Dilation Effaced St Visit Note 07/22/18 10w 3d 236 lb (+0 oz) 110/88 168 08/19/18 14w 3d 242 lb (+6 lb) 122/70 Negative Negative 152 NO VB, LOF. Doing well 09/16/18 18w 3d 240 lb (+4 lb) 112/62 Negative Negative 150 no vb lof cramping haing some dizziness- discussed supportive measures 10/15/18 22w 4d 247 lb 4 oz (+11 lb 4 oz) 130/62 Negative Negative 150 23 no vb lof co trouble sleeping due to anxiety, mom has terminal diagnosis and questionable. recommend zoloft 11/19/18 27w 4d 251 lb (+15 lb) 134/70 Negative Negative 151 28 No VB, LOF, CTX. Good Fm 12/12/18 30w 6d 250 lb (+14 lb) 102/80 Negative Negative 154 32 Some lows with glucose causing dizziness. Good FM. No VB, LOF 12/24/18 32w 4d 252 lb (+16 lb) 118/80 168 33 Better control of glucose, eating more protein. Avoiding cereal. Has not yet met with ring striker. Good FM. No Vb, LOF 01/01/19 33w 5d 248 lb (+12 lb) 120/82 Negative Negative 150 35 bs controlled no vb lof good fm 01/20/19 36w 3d 247 lb 8 oz (+11 lb 8 oz) 120/78 Trace 100 g/dL 150 BS controlled had mild vb occasional ctx no lof 01/30/19 37w 6d 251 lb (+15 lb) 128/78 Trace Negative 164 4 60 -2 ?ROM. No reg CTX. No VB. Good FM. ROMplus sent. Notes Visit Date: 01/30/19 ??No visit notes to display Visit Date: 01/20/19 ??BS controlled had mild vb occasional ctx no lof ??Falguni Palma MD on 01/20/19 Visit Date: 01/01/19 ??bs controlled no vb lof good fm ??Falguni Palma MD on 01/02/19 Visit Date: 12/24/18 ??Better control of glucose, eating more protein. Avoiding cereal. Has not yet met with ring striker. Good FM. No Vb, LOF ??RUSSELL Mota on 12/24/18 Visit Date: 12/12/18 ??Some lows with glucose causing dizziness. Good FM. No VB, LOF ??RUSSELL Mota on 12/12/18 Visit Date: 11/19/18 ??No VB, LOF, CTX. Good Fm ??RUSSELL Mota on 11/19/18 Visit Date: 10/15/18 ??no vb lof co trouble sleeping due to anxiety, mom has terminal diagnosis and questionable. recommend zoloft ??Falguni Palma MD on 10/15/18 Visit Date: 09/16/18 ??no vb lof cramping haing some dizziness- discussed supportive measures ??Falguni Palma MD on 09/16/18 Visit Date: 08/19/18 ??NO VB, LOF. Doing well ??RUSSELL Mota on 08/19/18 Visit Date: 07/22/18 ??No visit notes to display ACOG First Trimester First Trimester: Desire for , Alcohol, Tobacco Cessation, Illicit/Recreational Drug/Substance Use, Intimate Partner Violence, Barriers to care, Unstable Housing, Communication Barriers, Environmental/Work Hazards, Anticipated Course of Care, Toxoplasmosis Precations, Use of Any medications, Sexual activity, Exercise, Dental Care, Sauna/Hot tub use, Seat Belt use, Childbirth classes/Hospital facilities, , Travel, Indications for US and Screening for Aneuploidy Second Trimester Second Trimester: Signs and Symptoms of Labor, Selecting a care provider, Reproductive Life Planning, Care Planning, Tobacco Cessation, Depression/Anxiety and Intimate Partner Violence Third Trimester Third Trimester: Pain Management Plans, Labor support person(s), Movement Monitoring and Labor Signs Diagnostics Diagnostics Diagnostics Gest Glucose Tolerance MG/DL 11/25/18 Glucose 1 Hr 50 gm 150 mg/dL (70-140) H 11/19/18 Hgb 12.2 g/dL (12.0-15.0) 11/19/18 Hct 37.4 % (37-47) 11/19/18 Details: HIV: Urine Culture: Sequential Screen: NIPT Screen: [employer] system reviewed and no additional complaints, except as docu GI Denies abdominal pain, Denies nausea, Denies vomiting all others reviewed and negative Exam PE: VSSAF General: alert oriented comfortable HEENT: no thyromegaly, lymphadenopathy CV: RRR Resp: nl inspiratory effort Abdn: soft gravid NTTP approrpriate GA Ext: minimal edema Results POC Urinalysis 2 Dip (Clinic) Office Urine Glucose Negative Last Edit by Vijaya Correa on 01/30/19 13:57 Office Urine Protein Trace Last Edit by Vijaya Correa on 01/30/19 13:57 Assessment & Plan Problems 1. Vaginal discharge N89.8 2. Supervision of high risk , antepartum O09.90 PRR HARPREET 02/14/2019 girl PC Caius Spouse Harjinder 3. Multigravida of advanced maternal age in second trimester O09.522 genetic screening- low risk girl chose NIPT. 4. 37 weeks gestation of Z3A.37 carrier and genetic testing done, declined afp screen. anatomy us complete. 5. History of oligohydramnios Z87.59 nl neo at 36 weeks 6. Gestational diabetes mellitus (GDM) affecting O24.419 diet controlled, weekly nsts, Growth US at 36 weeks stable 36%, deliver by 40 weeks 7. GBS (group B Streptococcus carrier), +RV culture, currently O99.820 plan pcn in labor Plan admit to l and d with ROM clear fluid epidural pcn for labor Orders Orders: POC Urinalysis 2 Dip (Clinic) Today (ROM) Rupture Of Membranes Today O09.90 Coding Level of Care Code Off vis,est,level 3 Diagnoses Vaginal discharge N89.8 Supervision of high risk , antepartum O09.90 Multigravida of advanced maternal age in second trimester O09.522 ??Trimester: second trimester 37 weeks gestation of Z3A.37 ??Weeks of gestation: 37 weeks History of oligohydramnios Z87.59 Gestational diabetes mellitus (GDM) affecting O24.419 GBS (group B Streptococcus carrier), +RV culture, currently O99.820
[2019-01-30 18:40] LABS: Bedside Glucose 109 mg/dL (70-110)
[2019-01-30] MEDS: Mag Hydrox/Al Hydrox/Simeth 30 ML UDC PO (19:49)
[2019-01-30 19:51] LABS: Bedside Glucose 91 mg/dL (70-110)
[2019-01-30] MEDS: Oxytocin 30 units/NS 500 ml 30 UNITS/500 ML IV.SOLN IV (20:48)
[2019-01-30] MEDS: Ondansetron 4 MG/2 ML Vial IV (20:52)
[2019-01-30] MEDS: 0.9% Saline Lock 10 ML Syringe IV (20:52)
[2019-01-30 21:46] LABS: Bedside Glucose 86 mg/dL (70-110)
[2019-01-30 21:46] LABS: Bedside Glucose 80 mg/dL (70-110)
[2019-01-30] MEDS: Lactated Ringers 1,000 ML 200 ML IV (22:06)
[2019-01-30 22:41] LABS: Bedside Glucose 82 mg/dL (70-110)
[2019-01-30] MEDS: Oxytocin 30 units/NS 500 ml 30 UNITS/500 ML IV.SOLN 334 UNITS IV (23:37)
--- NOTE | 2019-01-30 23:49 | OP.PCM_ITS ---
Problem List (1) SROM (spontaneous rupture of membranes) Status: Acute (2) Active labor Status: Acute (3) AMA (advanced maternal age) multigravida 35+ Status: Acute Qualifiers: Comment: genetic screening- low risk girl chose NIPT. (4) Acute stress reaction Status: Acute Comment: support given, declined zoloft, h/o carcinoid cancer in mom (5) GBS (group B Streptococcus carrier), +RV culture, currently Status: Acute Comment: plan pcn in labor (6) Gestational diabetes mellitus (GDM) affecting Status: Acute Comment: diet controlled, weekly nsts, Growth US at 36 weeks stable 36%, deliver by 40 weeks (7) History of oligohydramnios Status: Acute Comment: nl neo at 36 weeks (8) Obesity affecting Status: Acute Qualifiers: Comment: BMI 38- Glucola NOB-WNL encouraged healthy weight gain (9) Status: Acute Qualifiers: Comment: carrier and genetic testing done, declined afp screen. anatomy us complete. (10) Spinal muscular atrophy Status: Acute Comment: Patient is a carrier. needs to be tested/aware (11) Supervision of high risk , antepartum Status: Acute Comment: PRR HARPREET 02/14/2019 girl PC Caius Spouse Harjinder Vaginal Delivery Maternal Presentation: Active Labor ial 4 cm pprom [id number] Method of Induction: Pitocin Amniotic Membrane Rupture Type: Spontaneous at home Amniotic Fluid Description: Clear Date of Procedure: 01/30/19 Pre-Operative Diagnosis: 37 week PPROM IAL Post-Operative Diagnosis: same Surgery/ Procedure Performed: Spontaneous Vaginal Delivery Type of Anesthesia: Epidural Description of Procedure: Patient began pushing and delivered the head in the EFRAIN presentation. The head was delivered atraumatically and a loose nuchal cord ?1 was identified and easily reduced over the 's head. The anterior and posterior shoulders delivered without complication followed by the rest of the infant and the was placed on the maternal abdomen. Delayed cord clamping was employed for approximately 60 seconds. Cord was clamped and cut and gentle traction was applied to the cord and the placenta delivered spontaneously immediately following it was noted to be intact with three-vessel cord. The perineum and vagina were inspected and noted to have a small first-degree perineal laceration that was repaired in the usual fashion with 3-0 Vicryl Rapide. EBL was 100 cc. Patient and tolerated delivery well. Presentation: EFRAIN Multi Select Codes - Urinary/Genital Urinary/Genital CPT Codes: 53546 Vaginal Delivery [facility]
[2019-01-31 01:30] LABS: Bedside Glucose 82 mg/dL (70-110)
[2019-01-31 02:06] LABS: Bedside Glucose 97 mg/dL (70-110)
[2019-01-31] MEDS: 0.9% Saline Lock 10 ML Syringe IV (02:14)
[2019-01-31 03:48] VITALS: BP 125/70; PULSE 80; RESP 16; TEMP 36.4
[2019-01-31 06:05] LABS: Bedside Glucose 88 mg/dL (70-110)
--- NOTE | 2019-01-31 08:12 | PCM.PN.OB ---
Patient Problems: Active and Suspected Problems (Last Reviewed 01/30/19 @ 13:56 by Vijaya Correa) SROM (spontaneous rupture of membranes) (Acute) Active labor (Acute) Subjective: doing well no complaints pain controlled no CP SOB N V ambulating well tolerating po lochia moderate, going well - Physical Exam Vitals/I&O's: Vital Signs Temp Pulse Resp BP 97.6 F L 80 16 125/70 H 01/31/19 03:48 01/31/19 03:48 01/31/19 03:48 01/31/19 03:48 Oxygen Delivery Method Room Air Weight: 248 lb 3.848 oz Body Mass Index (BMI) 40.0 Intake and Output for Last 24 Hours 01/29/19 01/30/19 01/31/19 23:59 23:59 23:59 Intake Total 2754.07 / 2754.07 1500 / 1500 Output Total 700 / 700 975 / 975 Balance 2054.07 / 2054.07 525 / 525 General: Alert, Oriented x3 Abdomen: Soft, Non Tender, Non-Distended, - - FF below U Laboratory Results 01/30/19 14:13: Vag Amniotic Fld Detect POSITIVE H 01/30/19 16:19: POC Glucose 100 01/30/19 16:21: WBC 12.1 H, RBC 4.83, Hgb 14.1, Hct 42.6, MCV 88.2, MCH 29.2, MCHC 33.1, RDW Std Deviation 40.6, RDW Coeff of Loulou 12.6, Plt Count 157, MPV 12.9 H, Immature Gran % (Auto) 1.500 H, Neut % (Auto) 72.9 H, Lymph % (Auto) 16.8 L, [place] % (Auto) 8.1, Eos % (Auto) 0.5, Baso % (Auto) 0.2, Absolute Neuts (auto) 8.8 H, Absolute Lymphs (auto) 2.04, Nucleated RBC % 0 01/30/19 16:21: Blood Type O POSITIVE, Antibody Screen NEGATIVE 01/30/19 17:18: POC Glucose 174 H 01/30/19 17:59: POC Glucose 131 H 01/30/19 18:34: POC Glucose 109 01/30/19 19:36: POC Glucose 91 01/30/19 20:36: POC Glucose 80 01/30/19 21:37: POC Glucose 86 01/30/19 22:27: POC Glucose 82 01/30/19 23:23: POC Glucose 82 01/31/19 01:30: POC Glucose 97 01/31/19 05:46: POC Glucose 88 Current Medications Acetaminophen (Tylenol) 1,000 mg PO Q8H PRN PRN PRN Reason: Pain Score 1-3/10 Bisacodyl (Dulcolax) 10 mg RECTAL UD PRN PRN Reason: If no BM Dibucaine (Dibucaine) 1 applic TOPICAL TID PRN PRN; Protocol PRN Reason: Discomfort Glucagon () 1 mg IM .X1 PRN PRN Reason: Hypoglycemia Hydrocortisone (Hytone) 1 applic TOPICAL TID PRN PRN; Protocol PRN Reason: Discomfort Dextrose (Dextrose 10%-Water) 250 mls @ 999 mls/hr IV X1 PRN; Protocol PRN Reason: HYPOGLYCEMIA Methylergonovine Maleate (Methergine) 0.2 mg IM X1 PRN PRN Reason: Excess bleeding/uterine atony Naproxen (Naprosyn) 500 mg PO Q8H PRN PRN PRN Reason: Pain Score 1-3/10 Ondansetron HCl (Zofran) 4 mg IV Q4H PRN PRN PRN Reason: Nausea Oxycodone HCl (Oxyir) 5 - 10 mg PO Q4H PRN PRN PRN Reason: Pain Score 4-10/10 Senna/Docusate Sodium (Senokot-S, Pita-Colace) 1 - 2 tablet PO DAILY PRN PRN PRN Reason: Constipation Simethicone (Mylicon) 80 mg PO PCHS PRN PRN Reason: Indigestion/Stomach pain Sodium Chloride () 5 - 15 ml IV UD PRN PRN Reason: SALINE FLUSH Last Admin: 01/31/19 02:14 Dose: 10 ml Documented by: Medical Necessity - Tobacco Use Smoking Status: Never smoker Assessment/Plan All Active Problems (Last Reviewed 01/30/19 @ 13:56 by Vijaya Correa) SROM (spontaneous rupture of membranes) (Acute) Active labor (Acute) GBS (group B Streptococcus carrier), +RV culture, currently (Acute) Gestational diabetes mellitus (GDM) affecting (Acute) Acute stress reaction (Acute) Spinal muscular atrophy (Acute) History of oligohydramnios (Acute) Supervision of high risk , antepartum (Acute) Obesity affecting (Acute) AMA (advanced maternal age) multigravida 35+ (Acute) (Acute) s/p PPD # 1 1. routine post delivery care 2. breast feeding- support given 3. rh positive 4. rubella immune
[2019-01-31 08:16] VITALS: BP 120/65; PULSE 72; RESP 16; TEMP 36.9
[2019-01-31 11:57] VITALS: BP 111/73; PULSE 72; RESP 16; TEMP 37.1
[2019-01-31 16:30] VITALS: BP 130/67; PULSE 88; RESP 16; TEMP 36.3
[2019-01-31 17:45] VITALS: BP 138/84; PULSE 97; RESP 15
[2019-01-31 21:00] VITALS: BP 120/73; PULSE 78; RESP 18; TEMP 36.7
[2019-02-01 02:00] VITALS: BP 112/63; PULSE 64; RESP 18; TEMP 36.2
[2019-02-01 07:51] VITALS: BP 120/73; PULSE 67; RESP 16; TEMP 36.6; O2SAT 98
[2019-02-01] MEDS: Naproxen 250 MG Tablet 500 MG PO (08:53)
--- NOTE | 2019-02-01 11:18 | DCINST_ITS ---
Discharge Diet: No Restrictions Discharge Activity: Return to Normal Activity, May not drive while taking narcotic pain medications., May Shower May resume sexual activity in: 4-6 weeks Call your doctor if your incision/area has: Continuous Slow Oozing, Sudden Increased Bleeding, Increased Pain/ Swelling, Increased Redness, Foul Smelling Discharge Additional Instructions: If you experience any of the following, contact your healthcare provider. * Bleeding that soaks a pad every hour for 2 hours * Fever 100.4 or higher * Unrelieved incision or abdominal pain * Swelling, redness, discharge or bleeding from your incision or episiotomy site * Your incision begins to separate * Problems urinating (including inability to urinate or burning while urinating). * Visual changes * Severe headache * Flu-like symptoms * Pain or redness in one of both of your breasts * Pain, warmth, tenderness or swelling in your legs, especially the calf area * Frequent nausea and vomiting * Symptoms of depression or anxiety If you experience any of the following, call 911 or go to the nearest Emergency Room. * Chest pain * Problems breathing * Seizure activity * Partial or complete paralysis of a body part, slurred speech, weakness or drooping of the face, or a sudden inability to walk or hold your balance Allergies/Adverse Reactions: Allergies No Known Allergies Allergy (Verified 01/30/19 13:55) Medications to take at Discharge docosahexanoic acid 200 mg capsule mg PO cap 07/22/18 blood sugar diagnostic See Rx Instructions .ROUTE .MEDSUPPLY #100 ea 11/26/18 blood-glucose meter See Rx Instructions .ROUTE .MEDSUPPLY #1 ea 11/26/18 lancets 28 gauge See Rx Instructions .ROUTE .MEDSUPPLY #200 ea 11/26/18 Please Follow Up With: Falguni Palma MD - [phone] When: Call to make an appointment with your doctor in 6 weeks. If you had elevated Blood pressure or 4th degree laceration you will need to be seen in 2 weeks. Primary Care Physician: Care Physician,No Primary [Primary Care Provider] - Test Results: Test results from this visit will be discussed in further detail at your follow- up appointment, if applicable.
--- NOTE | 2019-02-01 11:18 | PCM.PN.OB ---
Patient Problems: Active and Suspected Problems (Last Reviewed 01/30/19 @ 13:56 by Vijaya Correa) SROM (spontaneous rupture of membranes) (Acute) Active labor (Acute) Subjective: doing well no complaints pain controlled no CP SOB N V ambulating well tolerating po lochia moderate, going well - Physical Exam Vitals/I&O's: Vital Signs Temp Pulse Resp BP Pulse Ox 97.8 F 67 16 120/73 98 02/01/19 07:51 02/01/19 07:51 02/01/19 07:51 02/01/19 07:51 02/01/19 07:51 Oxygen Delivery Method Room Air Weight: 248 lb 3.848 oz Body Mass Index (BMI) 40.0 Intake and Output for Last 24 Hours 01/30/19 01/31/19 02/01/19 23:59 23:59 23:59 Intake Total 2754.07 / 2754.07 1500 / 1500 Output Total 700 / 700 1875 / 1875 Balance 2054.07 / 2054.07 -375 / -375 General: Alert, Oriented x3 Current Medications Acetaminophen (Tylenol) 1,000 mg PO Q8H PRN PRN PRN Reason: Pain Score 1-3/10 Bisacodyl (Dulcolax) 10 mg RECTAL UD PRN PRN Reason: If no BM Dibucaine (Dibucaine) 1 applic TOPICAL TID PRN PRN; Protocol PRN Reason: Discomfort Glucagon () 1 mg IM .X1 PRN PRN Reason: Hypoglycemia Hydrocortisone (Hytone) 1 applic TOPICAL TID PRN PRN; Protocol PRN Reason: Discomfort Dextrose (Dextrose 10%-Water) 250 mls @ 999 mls/hr IV X1 PRN; Protocol PRN Reason: HYPOGLYCEMIA Methylergonovine Maleate (Methergine) 0.2 mg IM X1 PRN PRN Reason: Excess bleeding/uterine atony Naproxen (Naprosyn) 500 mg PO Q8H PRN PRN PRN Reason: Pain Score 1-3/10 Last Admin: 02/01/19 08:53 Dose: 500 mg Documented by: Ondansetron HCl (Zofran) 4 mg IV Q4H PRN PRN PRN Reason: Nausea Oxycodone HCl (Oxyir) 5 - 10 mg PO Q4H PRN PRN PRN Reason: Pain Score 4-10/10 Senna/Docusate Sodium (Senokot-S, Pita-Colace) 1 - 2 tablet PO DAILY PRN PRN PRN Reason: Constipation Simethicone (Mylicon) 80 mg PO PCHS PRN PRN Reason: Indigestion/Stomach pain Sodium Chloride () 5 - 15 ml IV UD PRN PRN Reason: SALINE FLUSH Last Admin: 01/31/19 02:14 Dose: 10 ml Documented by: Medical Necessity - Tobacco Use Smoking Status: Never smoker Assessment/Plan All Active Problems (Last Reviewed 01/30/19 @ 13:56 by Vijaya Correa) SROM (spontaneous rupture of membranes) (Acute) Active labor (Acute) GBS (group B Streptococcus carrier), +RV culture, currently (Acute) Gestational diabetes mellitus (GDM) affecting (Acute) Acute stress reaction (Acute) Spinal muscular atrophy (Acute) History of oligohydramnios (Acute) Supervision of high risk , antepartum (Acute) Obesity affecting (Acute) AMA (advanced maternal age) multigravida 35+ (Acute) (Acute) s/p PPD # 2 1. routine post delivery care 2. breast feeding- support given 3. rh positive 4. rubella immune
== END 2019-02-01 13:10 | disposition home or self-care (01) | DRG 560 ==
LOC: WP 16:07
PROVIDERS: Nurse Practitioner Women's Health; Admitting Provider Obstetrics & Gynecology; Referring Provider Obstetrics & Gynecology; Visit Provider Obstetrics & Gynecology
DX: O42.02 Full-term premature rupture of membranes, onset of labor within 24 hours of rupture (principal); O98.82 Other maternal infectious and parasitic diseases complicating childbirth; B95.1 Streptococcus, group B, as the cause of diseases classified elsewhere; O99.214 Obesity complicating childbirth; E66.01 Morbid (severe) obesity due to excess calories; O69.81X0 Labor and delivery complicated by cord around neck, without compression, not applicable or unspecified; O24.420 Gestational diabetes mellitus in childbirth, diet controlled; Z3A.37 37 weeks gestation of pregnancy; Z37.0 Single live birth
CPT/HCPCS: 59025; 59050; 82962; 84112; 85025; 86850; 86900; 86901; 99218; J7120; A4216; G0378; J2405

== ENCOUNTER → 2019-03-11 | Outpatient (CLI) | payer MEDICAID, SELFPAY ==
[2019-03-11 12:56] VITALS: BMI 40.0
[2019-03-14 13:32] LABS: HPV APTIMA, High Risk Negative (Negative)
== END | disposition home or self-care (01) ==
LOC: LABSPEC 16:27
PROVIDERS: Referring Provider Obstetrics & Gynecology; Visit Provider Obstetrics & Gynecology
DX: Z12.4 Encounter for screening for malignant neoplasm of cervix (principal)
CPT/HCPCS: 87624; 88175; G0145

== ENCOUNTER → 2019-11-10 | Outpatient (CLI) | payer MEDICAID, SELFPAY ==
[2019-11-10 13:42] VITALS: BMI 40.0
[2019-11-10 15:13] LABS: Absolute Lymphocyte Count 1.47 X10^3/uL (0.83-4.51); Absolute Neutrophil Count 4.7 X10^3/uL (2.0-7.7); Basophil# 0.02 X10^3/uL; Basophil% 0.3 % (0-1); Eosinophil# 0.07 X10^3/uL; Hematocrit 40.9 % (37-47); Hemoglobin 13.3 g/dL (12.0-15.0); Lymphocyte # 1.47 X10^3/ul (4.0); Lymphocyte % 21.6 % (19-41); Mean Corp Hgb Conc 32.5 g/dL (32-36); Mean Corpuscular Hgb 29.4 pg (27.0-32.0); Mean Corpuscular Volume 90.5 fL (81-99); Mean Platelet Vol. 11.8 fl (6.2-12.0); Monocyte# 0.55 X10^3/uL; Monocyte% 8.1 % (0-10); NRBC Flagged by Analyzer 0 % (0-5); Neutrophil # 4.66 X10^3/uL (2.7-7.7); Neutrophil % 68.6 % (47-70); Platelet Count 197 K/mm3 (150-450); RBC Distribution Width SD 39.8 fl (35.1-43.9); Red Blood Count 4.52 M/mm3 (4.2-5.4); White Blood Count 6.8 K/mm3 (4.4-11.0)
[2019-11-10 15:38] LABS: Glucose Challenge Gest 1H 50g 162 mg/dL (70-140); T4 Free Direct 0.88 ng/dL (0.76-1.46); Thyroid Stim Hormone (TSH) 1.39 uIU/mL (0.358-3.74)
[2019-11-10 16:50] LABS: HIV - WCH Non-Reactive (Nonreactive); Hepatitis B Surface Antigen Non-Reactive (Nonreactive); Hepatitis C Antibody Non-Reactive (Nonreactive)
[2019-11-10 17:48] LABS: Amphetamine Urine VISTA NEGATIVE (<1000 ng/mL); Barbiturate Urine VISTA NEGATIVE (< 200 ng/mL); Benzodiazepine Urine VISTA NEGATIVE (< 200 ng/mL); Cocaine Urine VISTA NEGATIVE (< 300 ng/mL); Ecstacy Urine VISTA NEGATIVE (< 500 ng/mL); Methadone Urine VISTA NEGATIVE (< 300 ng/mL); PCP Urine VISTA NEGATIVE (< 25 ng/mL); THC Urine VISTA NEGATIVE (< 50 ng/mL); Vista UDS pH Range 5
[2019-11-13 02:04] LABS: Rapid Plasmin Reagin (RPR) NONREACTIVE (NONREACTIVE)
[2019-11-13 04:11] LABS: Chlamydia By Nucleic Acid AMP Negative (Negative)
[2019-11-13 10:37] LABS: Gonococcus By Nucleic Acid AMP Negative (Negative)
== END | disposition home or self-care (01) ==
PROVIDERS: Referring Provider Obstetrics & Gynecology; Visit Provider Obstetrics & Gynecology
DX: Z34.90 Encounter for supervision of normal pregnancy, unspecified, unspecified trimester (principal)
CPT/HCPCS: 36415; 80307; 82950; 84439; 84443; 85025; 86592; 86703; 86762; 86803; 86850; 86900; 86901; 87086; 87088; 87340; 87491; 87591

== ENCOUNTER 2019-11-25 11:38 | Emergency (ER) | payer MEDICAID, SELFPAY ==
[2019-11-10 13:42] VITALS: BMI 40.0
[2019-11-25 11:39] VITALS: BP 139/90; PULSE 95; RESP 16; TEMP 36.6; O2SAT 100; BMI 42.6
--- NOTE | 2019-11-25 11:56 | US_ITS ---
STUDY: ABDOMINAL ULTRASOUND - RIGHT UPPER QUADRANT REASON FOR VISIT: Female, 39 years old RLQ PAIN EVAL APPENDIX, RIGHT OVARY 11 WEEKS TECHNIQUE: Ultrasound evaluation of the right upper quadrant was performed with real-time and static green-scale imaging. TECHNICAL QUALITY: Adequate. COMPARISON: None. FINDINGS: Gallbladder: The gallbladder wall measures 3.6 mm. There is a negative sonographic Robins''s sign. There is no pericholecystic fluid. The gallbladder is full of stones. Common Bile Duct (C.B.D.): The common bile duct measures 2.8 mm. In the right lower quadrant, no definite abnormal appendix. Therefore appendicitis is neither confirmed nor excluded. No free fluid or fluid collections. Normal compressible bowel with peristalsis seen. No definite tenderness during this exam. US/Abdomen Limited IMPRESSION: Cholelithiasis. No definite abnormal appendix. Appendicitis neither confirmed nor excluded. Electronically Signed: Bridger Christianson MD at 14:06 EDT , Service support ,
--- NOTE | 2019-11-25 12:02 | ED.DCSUM_ITS ---
History of Present Illness Chief Complaint: Abd Pain Informant: Patient - Abdominal Pain/Flank Pain Onset: Yesterday Context: Gradual Onset Timing: Continuous Quality: Aching Location: RLQ - Started diffusely yesterday, today migrated to right lower quadrant/right mid abdomen Current Severity: Moderate Maximum Severity: Moderate Worsened by: Car ride Relieved by: Nothing - Nausea/Vomiting/Emesis GI Symptom: Nausea, Vomiting Onset: Weeks - morning sickness from being - no different this AM Quality: Nonbilious. Negative for: Blood streaks, Coffee ground, Hematemesis - Diarrhea/Melena/Hematochezia GI Symptom: Negative for: Diarrhea, Melena, Hematochezia Associated Symptoms: Negative for: Dysuria, Frequency, Hematuria, Urgency LMP: - , had u/s showing SLIUP and poss implantation bleed; currently around 11 weeks Narrative: Healthy 39-year-old presenting with abdominal discomfort that started in the middle yesterday and now in the right lower quadrant today. No history of abdominal surgeries. Currently 11 weeks. Had an ultrasound showing IUP. No recent discharge, leakage, bleeding. No urinary symptoms. No fevers or chills or history of coronavirus that she knows of. Prior similar symptoms: No Recent Illness/Hospitalization: No - Past Medical History (1) H/O gestational diabetes in prior , currently Status: Acute Comment: glucola at [facility] Past Medical History - Allergies and Home Meds Allergies/Adverse Reactions: Allergies No Known Allergies Allergy (Verified 11/25/19 11:41) Primary Care Physician: Caitlyn Sandhu DO [Primary Care Provider] - Doctors: NANI Palma Lives: With Family Smoking Status: Never smoker Review of Systems General: Denies: Chills, Fever, Sweats Eyes: Denies: Visual changes - bilaterally, Diplopia ENT: Denies: Rhinorrhea, Sore throat Cardiovascular: Denies: Chest pain, Palpitations Respiratory: Denies: Dyspnea, Cough, Dyspnea on exertion Gastrointestinal: Reports: Abdominal pain, Nausea, Vomiting. Denies: Diarrhea, Melena, Hematochezia Genitourinary: Denies: Dysuria, Hematuria, Frequency Musculoskeletal: Denies: Neck pain, Back pain, Extremity Pain Skin: Denies: Rash, Wounds Neurological: Denies: Headache, Weakness, Numbness Physical Exam Vital Signs/Narrative: Vital Signs Temp Pulse Resp BP Pulse Ox 11/25/19 11:39 97.8 F 95 16 139/90 H 100 Inital Vital Signs reviewed: Yes General: Well nourished, Well developed, No Acute Distress Head: Normocephalic, Atraumatic Eyes: Perrl, EOMI ENT: Moist mucous membranes, No rhinorrhea Neck: Supple, Nontender Cardiovascular: Regular rate, Regular rhythm, No murmurs Respiratory: No distress, CTA bilaterally, Chest nontender Abdomen: Soft, Nondistended, Normal bowel sounds, Tender - R mid abd and at McBurney's pt, not tender in R pelvis, Rebound tenderness, Psoas sign. Negative for: Guarding, Obturator sign, Rovsig's sign, Robins's sign Back: Nontender, Normal Inspection. Negative for: CVA tenderness Extremities: Nontender, No edema Skin: Normal color, No rash, No Trauma Neurological: Alert, Oriented x3, Cranial nerves II-XII grossly intact, Normal Strength, Normal Sensation, Normal Gait Psychological: Normal affect, Normal Mood Diagnostic/Tx/Re-eval Impressions Abdomen Ultrasound 11/25/19 11:56 IMPRESSION: Cholelithiasis. No definite abnormal appendix. Appendicitis neither confirmed nor excluded. Electronically Signed: Bridger Christianson MD at 14:06 EDT , Service support , 11/25/19 11:56 Abdomen Limited [US] Stat Laboratory Results 11/25/19 11/25/19 11/25/19 12:45 12:45 12:48 WBC 11.6 H RBC 4.60 Hgb 13.4 Hct 42.0 MCV 91.3 MCH 29.1 MCHC 31.9 L RDW Std Deviation 40.4 RDW Coeff of [place] 12.1 Plt Count 180 MPV 11.4 Immature Gran % (Auto) 0.400 Neut % (Auto) 82.2 H Lymph % (Auto) 10.5 L [place] % (Auto) 6.3 Eos % (Auto) 0.4 Baso % (Auto) 0.2 Absolute Neuts (auto) 9.5 H Absolute Lymphs (auto) 1.22 Nucleated RBC % 0 Sodium 138 Potassium 3.5 Chloride 108 H Carbon Dioxide 26.0 Anion Gap 4 L BUN 9 Creatinine 0.84 Estim Creat Clear Calc 85.84 Est GFR (MDRD) Af Amer 98 Est GFR (MDRD) Non-Af 81 BUN/Creatinine Ratio 10.8 Glucose 125 H Calcium 8.7 Total Bilirubin 0.30 AST 16 ALT 40 Alkaline Phosphatase 60 Total Protein 7.0 Albumin 3.4 Globulin 3.6 Albumin/Globulin Ratio 0.9 Urine Color Yellow Urine Clarity Clear Urine pH 6.0 Ur Specific [place] 1.010 Urine Protein Negative Urine Glucose (UA) Normal Urine Ketones Negative Urine Occult Blood Negative Urine Nitrite Negative Urine Bilirubin Negative Urine Urobilinogen Normal Ur Leukocyte Esterase 100 H Urine RBC 0 SEEN Urine WBC 0 SEEN Ur Squamous Epith Cells 0-5 SEEN Urine Bacteria 0 SEEN Urine Mucus 0 SEEN - Medical Decision Making In considering appendicitis, and , ultrasound was obtained. As above it did not show the appendix which is not ruled in or out. However, patient has a gallbladder packed with stones. I reexamined her. She states her pain is less without treatment. She has very very mild tenderness in the right mid abdomen, no longer tender in the McBurney's point area or distal to that. My feeling is that this is likely biliary colic and she confirms that she was feeling it colicky at times, it was worse with taking a deep breath consistent with gallbladder pain, and at times when she took a deep breath she would feel it in her right low back. As I discussed with her, there are risks to doing a CT even if it is limited, she agrees with that and would prefer not to do that if possible. I think it is reasonable for her to follow-up with surgery as an outpatient and be on a fat-free diet at this time, since there is no evidence of acute cholecystitis and she had a negative sonographic Robins. I discussed with Dr. Vega, he agrees with this plan and will see her shortly as an outpatient. Also discussed with her OB, Dr. Palma. We discussed reasons to return, worsening progressively distal lower abdominal pain and she is agreeable to this overall plan and sticking with a fat-free diet is much as possible. ED Disposition - Plan for ED Patient: Disposition: Home or Assisted Living Diagnosis: Cholelithiasis, Biliary colic Instructions: ED Gallstones with Biliary Colic Referrals: Chinedu Vega MD [STAFF PHYSICIAN] - As soon as possible (call for appt)
[2019-11-25] MEDS: 0.9% Normal Saline 1,000 ML 1000 ML IV (12:41)
[2019-11-25 12:52] LABS: Bacteria 0 SEEN /hpf (None Seen); Mucous, Urine 0 SEEN /hpf (<or=2+); Red Blood Cells-Urine 0 SEEN /hpf (0-5); White Blood Cells 0 SEEN /hpf (0-5)
[2019-11-25 12:56] LABS: Absolute Lymphocyte Count 1.22 X10^3/uL (0.83-4.51); Absolute Neutrophil Count 9.5 X10^3/uL (2.0-7.7); Basophil# 0.02 X10^3/uL; Basophil% 0.2 % (0-1); Eosinophil# 0.05 X10^3/uL; Eosinophils% 0.4 % (0-5); Hemoglobin 13.4 g/dL (12.0-15.0); Lymphocyte # 1.22 X10^3/ul (4.0); Lymphocyte % 10.5 % (19-41); Mean Corp Hgb Conc 31.9 g/dL (32-36); Mean Corpuscular Hgb 29.1 pg (27.0-32.0); Mean Corpuscular Volume 91.3 fL (81-99); Mean Platelet Vol. 11.4 fl (6.2-12.0); Monocyte# 0.73 X10^3/uL; Monocyte% 6.3 % (0-10); NRBC Flagged by Analyzer 0 % (0-5); Neutrophil # 9.51 X10^3/uL (2.7-7.7); Neutrophil % 82.2 % (47-70); Platelet Count 180 K/mm3 (150-450); RBC Distribution Width CV 12.1 % (11.6-14.6); RBC Distribution Width SD 40.4 fl (35.1-43.9); White Blood Count 11.6 K/mm3 (4.4-11.0)
[2019-11-25 13:00] LABS: Color, Urine Yellow (Yellow); Glucose, Dipstick Normal (Normal); Ketone-Dipstick Negative (Negative); Leukocyte Esterase-Dipstick 100 /ul (Negative); Nitrite-Dipstick Negative (Negative); Occult Blood-Urine Negative /ul (Negative); Protein-Dipstick Negative (Negative); Urine Bilirubin Dipstick Negative (Negative); Urine Clarity Clear (Clear); Urine Urobilinogen Normal (Normal)
[2019-11-25 13:09] LABS: Squamous Epithelial Cells - UA 0-5 SEEN /hpf (5-10)
[2019-11-25 13:14] LABS: ALB/GLOB Ratio 0.9 RATIO (0.9-2.4); AST(SGOT) 16 U/L (15-37); Alanine Aminotransfer ALT/SGPT 40 U/L (13-56); Albumin, Serum 3.4 g/dL (3.2-5.0); Alkaline Phosphatase 60 U/L (45-117); Anion Gap 4 (5-15); BUN 9 mg/dL (7-18); BUN/Creat Ratio 10.8 RATIO (10-20); Calcium,Total 8.7 mg/dL (8.5-10.1); Chloride 108 mmol/L (98-107); Creatinine, Serum 0.84 mg/dL (0.55-1.02); EST Glomerular Filtration Rate 81 mL/min (>60); Est Glom Filt Rate - Afr Amer 98 mL/min (>60); Estimated Creatinine Clearance 85.84 ml/min; Globulin 3.6 g/dL (2.2-4.2); Glucose 125 mg/dL (74-106); Potassium 3.5 mmol/L (3.5-5.1); Sodium Level 138 mmol/L (136-145)
[2019-11-25 15:46] VITALS: BP 142/73; PULSE 79; RESP 16
== END 2019-11-25 15:46 | disposition home or self-care (01) ==
PROVIDERS: Emergency Provider Emergency Medicine; PCP Family Medicine
DX: O26.611 Liver and biliary tract disorders in pregnancy, first trimester (principal); K80.70 Calculus of gallbladder and bile duct without cholecystitis without obstruction; Z3A.11 11 weeks gestation of pregnancy
CPT/HCPCS: 76705; 80053; 81001; 85025; 96361; 96374; J7030; A4216

== ENCOUNTER → 2019-12-08 | Outpatient (CLI) | payer MEDICAID, SELFPAY ==
[2019-12-08 13:03] VITALS: BMI 42.4
== END | disposition home or self-care (01) ==
LOC: PAVLAB 13:29
PROVIDERS: PCP Family Medicine; Referring Provider Obstetrics & Gynecology; Visit Provider Obstetrics & Gynecology
DX: O09.521 Supervision of elderly multigravida, first trimester (principal); Z3A.00 Weeks of gestation of pregnancy not specified
CPT/HCPCS: 36415

== ENCOUNTER → 2020-01-05 13:30 | Outpatient (CLI) | payer MEDICAID, SELFPAY ==
[2020-01-05 13:08] VITALS: BMI 42.6
== END ==
PROVIDERS: PCP Family Medicine; Referring Provider Obstetrics & Gynecology; Visit Provider Obstetrics & Gynecology
DX: R39.15 Urgency of urination (principal)
CPT/HCPCS: 87086; 87088

== ENCOUNTER → 2020-03-25 09:43 | Outpatient (CLI) | payer MEDICAID, SELFPAY ==
[2020-03-02 08:20] VITALS: BMI 43.1
[2020-03-22 13:12] VITALS: BMI 43.7
[2020-03-25 10:27] LABS: Absolute Neutrophil Count 6.6 X10^3/uL (2.0-7.7); Basophil# 0.03 X10^3/uL; Basophil% 0.3 % (0-1); Eosinophil# 0.08 X10^3/uL; Eosinophils% 0.9 % (0-5); Hematocrit 39.6 % (37-47); Hemoglobin 12.9 g/dL (12.0-15.0); Lymphocyte % 16.6 % (19-41); Mean Corp Hgb Conc 32.6 g/dL (32-36); Mean Corpuscular Hgb 29.3 pg (27.0-32.0); Monocyte# 0.72 X10^3/uL; NRBC Flagged by Analyzer 0 % (0-5); Neutrophil # 6.58 X10^3/uL (2.7-7.7); Platelet Count 166 K/mm3 (150-450); RBC Distribution Width CV 12.8 % (11.6-14.6); RBC Distribution Width SD 41.7 fl (35.1-43.9)
[2020-03-25 10:46] LABS: Glucose GTT-Gestation. Fasting 89 mg/dL (<105)
[2020-03-25 11:35] LABS: Glucose GTT-Gestational 1 Hr 201 mg/dL (<190)
[2020-03-25 13:49] LABS: Glucose GTT-Gestational 2 Hr 205 mg/dL (<165)
[2020-03-25 13:52] LABS: Glucose GTT-Gestational 3 Hr 143 L (<145)
== END ==
PROVIDERS: Referring Provider Obstetrics & Gynecology; Visit Provider Obstetrics & Gynecology
DX: Z34.90 Encounter for supervision of normal pregnancy, unspecified, unspecified trimester (principal)
CPT/HCPCS: 36415; 82951; 82952; 85025